=== PATIENT | male | born 1980 | race Caucasian/White ===

== ENCOUNTER 2022-01-31 21:57 | Emergency (ER) | payer OTHER, SELFPAY ==
[2022-01-31 21:57] VITALS: BP 162/112; PULSE 109; RESP 15; TEMP 36.6; O2SAT 95; BMI 35.9
--- NOTE | 2022-01-31 22:09 | EDS_ITS ---
HPI History of Present Illness Chief Complaint: Foreign Body Informant: patient Narrative Narrative: Presents for steak food impaction concerns. Patient ate steak at 430, he states he had a hiccup felt it lodged in his upper chest. He tried coke at home tried warm tea with no success. He states it stayed down briefly and would come right back up. Patient tried jumping up and down on steps. He had an incident a year ago with apple however that was able to get dislodged. Has never seen GI or had endoscopy. Denies past medical history. Denies allergies. Prior similar symptoms: Yes PFSH PFSH Home Medications buprenorphine-naloxone [Suboxone] 01/31/22 [History Last Taken Unknown] pantoprazole 40 mg tablet,delayed release 40 mg PO BID #60 tab 02/01/22 [Rx Last Taken Unknown] pantoprazole [Protonix] 40 mg PO BID 30 Days #60 tab 02/01/22 [Rx Last Taken Unknown] Allergy/AdvReac Type Severity Reaction Status Date / Time No Known Allergies Allergy Verified 01/31/22 22:01 Social History Smoking Status: Current every day smoker tobacco type: cigarettes ROS ROS ED Constitutional Constitutional ED: Denies chills, fever(s) or sweats Eyes Eyes: Denies change in vision ENT ENT ED: Denies dysphagia or sore throat Cardiovascular Cardiovascular: Denies chest pain, leg edema, palpitations or racing heartbeat Respiratory/Chest Respiratory/Chest: Denies cough, dyspnea or dyspnea on exertion Gastrointestinal Gastrointestinal: Denies abdominal pain, diarrhea, nausea or vomiting Genitourinary Genitourinary ED: Denies dysuria, hematuria or urinary frequency Musculoskeletal Musculoskeletal: Denies back pain, extremity pain or neck pain Integumentary Denies rash or wounds Neurologic Neurologic: Denies headache(s), paresthesias or weakness EXAM Physical Exam Const Vital Signs: 01/31/22 21:57 01/31/22 22:07 02/01/22 00:04 Temperature 97.9 F 98.2 F Temperature Source Temporal Pulse Rate 109 H 106 H Pulse Rate [1] Pulse Rate [2] Pulse Rate [3] Pulse Rate [4] Pulse Rate [5] Pulse Rate [6] Pulse Rate [7] Respiratory Rate 15 22 H Respiratory Rate [1] Respiratory Rate [2] Respiratory Rate [3] Respiratory Rate [4] Respiratory Rate [7] Respiratory Effort Normal Non-Labored Respiratory Pattern Normal Blood Pressure 162/112 H 163/99 H Blood Pressure [1] Blood Pressure [2] Blood Pressure [3] Blood Pressure [4] Blood Pressure [6] Blood Pressure [7] Blood Pressure Mean 128 Pulse Ox 95 96 Oxygen Delivery Method Room Air Room Air Oxygen Delivery Method [1] Oxygen Delivery Method [2] Oxygen Delivery Method [3] Oxygen Delivery Method [4] Oxygen Delivery Method [5] Oxygen Delivery Method [6] Oxygen Delivery Method [7] Oxygen Flow Rate (L/min) Oxygen Flow Rate (L/min) [1] Oxygen Flow Rate (L/min) [2] Oxygen Flow Rate (L/min) [3] Oxygen Flow Rate (L/min) [4] Oxygen Flow Rate (L/min) [5] Oxygen Flow Rate (L/min) [6] Oxygen Flow Rate (L/min) [7] 02/01/22 00:06 02/01/22 00:21 02/01/22 00:24 Temperature Temperature Source Pulse Rate 91 Pulse Rate [1] 94 Pulse Rate [2] 24 L Pulse Rate [3] 84 Pulse Rate [4] 77 Pulse Rate [5] 105 H Pulse Rate [6] 114 H Pulse Rate [7] 100 Respiratory Rate 27 H Respiratory Rate [1] 22 H Respiratory Rate [2] 19 H Respiratory Rate [3] 22 H Respiratory Rate [4] 25 H Respiratory Rate [7] 30 H Respiratory Effort Respiratory Pattern Blood Pressure 143/90 H Blood Pressure [1] 166/121 H Blood Pressure [2] 160/99 H Blood Pressure [3] 142/100 H Blood Pressure [4] 134/84 H Blood Pressure [6] 138/99 H Blood Pressure [7] 137/88 H Blood Pressure Mean Pulse Ox 92 Oxygen Delivery Method Non-Rebreather Non-Rebreather Oxygen Delivery Method [1] Nasal Cannula Oxygen Delivery Method [2] Nasal Cannula Oxygen Delivery Method [3] Nasal Cannula Oxygen Delivery Method [4] Nasal Cannula Oxygen Delivery Method [5] Nasal Cannula Oxygen Delivery Method [6] Nasal Cannula Oxygen Delivery Method [7] Nasal Cannula Oxygen Flow Rate (L/min) 15 15 Oxygen Flow Rate (L/min) [1] 2 Oxygen Flow Rate (L/min) [2] 3 Oxygen Flow Rate (L/min) [3] 4 Oxygen Flow Rate (L/min) [4] 4 Oxygen Flow Rate (L/min) [5] 4 Oxygen Flow Rate (L/min) [6] 4 Oxygen Flow Rate (L/min) [7] 95 02/01/22 00:29 02/01/22 00:34 02/01/22 00:39 Temperature Temperature Source Pulse Rate 109 H 99 88 Pulse Rate [1] Pulse Rate [2] Pulse Rate [3] Pulse Rate [4] Pulse Rate [5] Pulse Rate [6] Pulse Rate [7] Respiratory Rate 20 H 15 17 Respiratory Rate [1] Respiratory Rate [2] Respiratory Rate [3] Respiratory Rate [4] Respiratory Rate [7] Respiratory Effort Respiratory Pattern Blood Pressure 162/71 H 127/85 H 127/85 H Blood Pressure [1] Blood Pressure [2] Blood Pressure [3] Blood Pressure [4] Blood Pressure [6] Blood Pressure [7] Blood Pressure Mean Pulse Ox 92 95 97 Oxygen Delivery Method Non-Rebreather Non-Rebreather Non-Rebreather Oxygen Delivery Method [1] Oxygen Delivery Method [2] Oxygen Delivery Method [3] Oxygen Delivery Method [4] Oxygen Delivery Method [5] Oxygen Delivery Method [6] Oxygen Delivery Method [7] Oxygen Flow Rate (L/min) 15 15 15 Oxygen Flow Rate (L/min) [1] Oxygen Flow Rate (L/min) [2] Oxygen Flow Rate (L/min) [3] Oxygen Flow Rate (L/min) [4] Oxygen Flow Rate (L/min) [5] Oxygen Flow Rate (L/min) [6] Oxygen Flow Rate (L/min) [7] 02/01/22 01:27 02/01/22 01:36 02/01/22 01:41 Temperature 97.8 F Temperature Source Temporal Pulse Rate 83 91 78 Pulse Rate [1] Pulse Rate [2] Pulse Rate [3] Pulse Rate [4] Pulse Rate [5] Pulse Rate [6] Pulse Rate [7] Respiratory Rate 20 H 20 H 14 Respiratory Rate [1] Respiratory Rate [2] Respiratory Rate [3] Respiratory Rate [4] Respiratory Rate [7] Respiratory Effort Respiratory Pattern Blood Pressure 119/68 130/90 H 123/67 H Blood Pressure [1] Blood Pressure [2] Blood Pressure [3] Blood Pressure [4] Blood Pressure [6] Blood Pressure [7] Blood Pressure Mean 85 103 85 Pulse Ox 97 98 99 Oxygen Delivery Method Non-Rebreather Non-Rebreather Nasal Cannula Oxygen Delivery Method [1] Oxygen Delivery Method [2] Oxygen Delivery Method [3] Oxygen Delivery Method [4] Oxygen Delivery Method [5] Oxygen Delivery Method [6] Oxygen Delivery Method [7] Oxygen Flow Rate (L/min) 15 4 Oxygen Flow Rate (L/min) [1] Oxygen Flow Rate (L/min) [2] Oxygen Flow Rate (L/min) [3] Oxygen Flow Rate (L/min) [4] Oxygen Flow Rate (L/min) [5] Oxygen Flow Rate (L/min) [6] Oxygen Flow Rate (L/min) [7] 02/01/22 01:43 02/01/22 02:40 Temperature Temperature Source Pulse Rate 74 Pulse Rate [1] Pulse Rate [2] Pulse Rate [3] Pulse Rate [4] Pulse Rate [5] Pulse Rate [6] Pulse Rate [7] Respiratory Rate 74 H Respiratory Rate [1] Respiratory Rate [2] Respiratory Rate [3] Respiratory Rate [4] Respiratory Rate [7] Respiratory Effort Respiratory Pattern Blood Pressure 119/67 Blood Pressure [1] Blood Pressure [2] Blood Pressure [3] Blood Pressure [4] Blood Pressure [6] Blood Pressure [7] Blood Pressure Mean Pulse Ox 96 98 Oxygen Delivery Method Nasal Cannula Oxygen Delivery Method [1] Oxygen Delivery Method [2] Oxygen Delivery Method [3] Oxygen Delivery Method [4] Oxygen Delivery Method [5] Oxygen Delivery Method [6] Oxygen Delivery Method [7] Oxygen Flow Rate (L/min) 2 Oxygen Flow Rate (L/min) [1] Oxygen Flow Rate (L/min) [2] Oxygen Flow Rate (L/min) [3] Oxygen Flow Rate (L/min) [4] Oxygen Flow Rate (L/min) [5] Oxygen Flow Rate (L/min) [6] Oxygen Flow Rate (L/min) [7] Positive well nourished and well developed General Appearance ED: well developed and NAD HEENT Reports moist mucous membranes HEENT Narrative: Airway patent, no stridor normocephalic and atraumatic Eyes PERRL, EOMs intact bilaterally and conjunctivae normal General Eye ED: Yes normal appearance of both eyes Neck no lymphadenopathy and supple General: Negative for tenderness Chest Wall Chest: Negative for tenderness Resp normal respiratory effort and normal air movement Effort and Inspection: symmetric chest movement; Negative for respiratory distress Cardio regular rate, regular rhythm and no murmurs Peripheral Pulses: pulses 2+ throughout GI normal to inspection, nondistended, normoactive bowel sounds and non-tender Palpation: Negative for guarding or rebound tenderness present Back/Spine no CVA tenderness and no thoracic nor lumbar tenderness Extremity normal to inspection General Extremety ED: Negative for edema or tenderness General Extremity: Negative for edema Neuro oriented x3 and no sensory deficits noted Sensorium / Orientation: awake and alert Skin no rashes or lesions noted and no wounds MDM MDM MDM Narrative Medical decision making narrative: Patient presenting with concerning steak impaction. Attempted additional carbonated drinks with no success IVs placed glucagon IV also no success. Discussed with GI Dr. Vivas who came to emergency department assist. Consent was obtained conscious sedation by myself procedure by Dr. Vivas. Confirm steak impaction with eosinophilic esophagitis concerns. He recommended Protonix 40 mL twice daily for the next 8 weeks. Liquid diet for next 24 hours and soft foods. Patient will chew his food thoroughly. We will follow-up as an outpatient. Discussed no driving or working for the next day. He is discharged with ride. Prescriptions with meds to bed for 30 days along with additional refill for the 8-week plan of treatment. Procedure note: Written consent. Risks and benefits discussed. IV with fluids cardiac cath lab technologist oxygenation and pulse ox. ASA classification via 2 with his BMI. He does report snoring however no diagnosed sleep apnea. Mallampati 3. Timeout performed. Patient sedated for procedure requiring a total of 270 mg of propofol and 5 mg of Versed, procedure performed by Dr. Vivas see his note. Current time patient intermittently catheterization in the 80s responded with increasing oxygenation and jaw thrust. After procedure switch over to a vent mass with bite-block remaining to improve airway. There is no complications with this. Patient tolerated procedure well. Sinus rhythm on the monitor throughout. Total sedation time 30 minutes. Discharge Plan Triage Chief Complaint: Foreign Body ED Provider: Balwinder Prado Dx/Rx/DC Orders Clinical Impression: Esophageal foreign body, Eosinophilic esophagitis, History of conscious sedation Instructions: Eosinophilic Esophagitis (EoE), ED Esophageal Foreign Body, Resolved Prescriptions: New pantoprazole [Protonix] 40 mg tablet,delayed release (DR/EC) 40 mg PO BID 30 Days Qty: 60 RF: 1 No Action buprenorphine-naloxone [Suboxone] 2-0.5 mg film RF: 0 pantoprazole 40 mg tablet,delayed release (DR/EC) 40 mg PO BID Qty: 60 RF: 1 Primary Care Provider: Keenan Dumont Referrals: Phil Vivas DO [STAFF PHYSICIAN] - (3-4 weeks) Keenan Dumont MD [Primary Care Provider] - Activity Restrictions/Additional Instructions: Your steak impaction was removed findings of eosinophilic esophagitis. Take Protonix twice a day for the next 8 weeks per recommendations of GI. Follow-up with them as an outpatient. Clear liquid diet for the next 24 hours then soft foods. Make sure you chew your food before you swallow. Follow-up with GI in the next 3 to 4 weeks. Disposition Disposition: Home, Self Care Discharge Date/Time: 02/01/22 02:46
--- NOTE | 2022-01-31 22:10 | ED.RN ---
jumping on heels at this time and given 2 small cokes to drink
[2022-01-31] MEDS: Glucagon 1 MG/ML Syringe IV (22:27)
--- NOTE | 2022-01-31 23:00 | CON.PCM_ITS ---
Assessment & Plan Assessment/Plan (1) Esophageal foreign body: PLAN: Recommendation is upper endoscopy with removal of foreign body. He was explained alternatives, risk, benefits including not withstanding bleeding, infection, sepsis, perforation, need for emergent surgery . Have an ASA of 1. HPI Consult Data Date of Consult: 02/01/22 HPI Narrative HPI Narrative: MAURY MAYER, is a 41 M who presents from home with a foreign body. He has had intermittent episodes of esophageal dysphagia secondary to foreign bodies. This happened to him approximately a year ago but he was able to cough out the food. He does not take any NSAIDs. He has no history of liver disease. He does not take any antacids. He denies any chest pain or shortness of breath. The only medicine he takes on a daily basis and due to of previous history of usage [facility] Home Medications buprenorphine-naloxone [Suboxone] 01/31/22 [History Last Taken Unknown] Allergy/AdvReac Type Severity Reaction Status Date / Time No Known Allergies Allergy Verified 01/31/22 22:01 Social History Smoking Status: Current every day smoker tobacco type: cigarettes ROS Review of Systems ROS Unobtainable: other Constitutional Constitutional: Denies fatigue, fever(s), poor appetite, weight gain or weight loss ENT HEENT: Denies mouth lesions Cardiovascular Cardiovascular: Denies abdominal bloating, abdominal edema or abdominal pain Respiratory/Chest Respiratory/Chest: Denies change in mental status, change in phlegm color, chest congestion or chest tightness Gastrointestinal Gastrointestinal: Reports dysphagia Genitourinary Genitourinary: Denies abdominal discomfort, burning urination or itching Musculoskeletal Musculoskeletal: Reports as per HPI; Denies muscle weakness or myalgias Integumentary Integumentary: Denies jaundice Neurologic Neurologic: Denies lack of coordination or weakness Psychiatric Psychiatric: Denies confusion, depression, memory loss, mood swings, paranoia or suicidal ideation Endocrine Endocrinology: Denies systems reviewed and no addt'l complaints, except as documented Hematologic/Lymphatic Hematologic/Lymphatic: Denies anemia, easy bleeding, easy bruising or lymphadenopathy Allergic/Immunologic Allergic/Immunologic: Denies systems reviewed and no addt'l complaints, except as documented Physical Exam Const alert General Appearance: cooperative Orientation / Consciousness: oriented to person HEENT hearing grossly normal bilaterally Head and Scalp: normal to inspection Face and Sinus: face symmetric Nose: external nose normal Mouth: oral and palatal mucosa normal Eyes conjunctivae normal General Eye: normal appearance of both eyes Neck full ROM General: normal visual inspection Lymph Lymphatic: no lymphadenopathy noted Chest inspection of chest normal and palpation of chest normal Chest: symmetrical chest wall rise Resp normal respiratory effort Effort and Inspection: able to speak in complete sentences Cardio regular rate GI non-distended Percussion: normal to percussion Rectal Exam: deferred Neuro Speech: speech normal Gait (Neuro): normal gait Charges/Coding Visit Charges Office Visits / Consults: [id number] ED Visit; Low/Mod Severity
[2022-02-01] VITALS (12 sets, daily range): BP systolic 119–166; BP diastolic 67–121; PULSE 24–114; RESP 14–74; TEMP 36.6–36.8; O2SAT 92–99
--- NOTE | 2022-02-01 00:35 | OP.CCLET_ITS ---
07/02/2022 Keenan Dumont Re : Upper GI endoscopy procedure for Amauri Miller Dear Julia This procedure was performed on Monday, January 31, 2022. My impressions and recommendations are as follows: Impressions : - Food in the middle third of the esophagus. Removal was successful. - Esophageal mucosal changes consistent with eosinophilic esophagitis. Dilated. - A large amount of food (residue) in the stomach. - Normal duodenal bulb. Recommendations : - Discharge patient to home. - Clear liquid diet today. - Use Protonix (pantoprazole) 40 mg PO BID for 8 weeks. - Continue present medications. My findings are described in the full procedure note, which is enclosed. If I can be of further assistance, please feel free to contact me at . Sincerely, Phil Vivas, 02/01/2022 12:35:03 AM This report has been signed electronically.
--- NOTE | 2022-02-01 00:35 | OP.EGD_ITS ---
Patient Name: Amauri Miller Procedure Date: 01/31/2022 11:49 PM Date of : 1980 Age: 41 Procedure: Upper GI endoscopy Indications: Dysphagia Providers: Phil Vivas DO Medicines: Monitored Anesthesia Care Patient Profile: This is a 41 year old male. Refer to note in patient chart for documentation of history and physical. Patient has symptoms of acute dysphagia. Complications: No immediate complications. Procedure: Pre-Anesthesia Assessment: - Prior to the procedure, a History and Physical was performed, and patient medications and allergies were reviewed. The risks and benefits of the procedure and the sedation options and risks were discussed with the patient. All questions were answered and informed consent was obtained. Patient identification and proposed procedure were verified by the physician in the pre-procedure area. Mental Status Examination: alert and oriented. Airway Examination: normal oropharyngeal airway and neck mobility. Respiratory Examination: clear to auscultation. CV Examination: normal. Prophylactic Antibiotics: The patient does not require prophylactic antibiotics. Prior Anticoagulants: The patient has taken no previous anticoagulant or antiplatelet agents. ASA Grade Assessment: II - A patient with mild systemic disease. After reviewing the risks and benefits, the patient was deemed in satisfactory condition to undergo the procedure. The anesthesia plan was to use moderate sedation / analgesia (conscious sedation). Immediately prior to administration of medications, the patient was re-assessed for adequacy to receive sedatives. The heart rate, respiratory rate, oxygen saturations, blood pressure, adequacy of pulmonary ventilation, and response to care were monitored throughout the procedure. The physical status of the patient was re-assessed after the procedure. After obtaining informed consent, the endoscope was passed under direct vision. Throughout the procedure, the patient's blood pressure, pulse, and oxygen saturations were monitored continuously. The gastroscope was introduced through the mouth, and advanced to the second part of duodenum. The upper GI endoscopy was accomplished without difficulty. The patient tolerated the procedure well. Moderate Sedation: Moderate (conscious) sedation was administered by the endoscopy nurse and supervised by the endoscopist. The following parameters were monitored: oxygen saturation, heart rate, blood pressure, and response to care. Total physician intraservice time was 15 minutes. Scope In: 12:11:42 AM Scope Out: 12:21:51 AM Total Procedure Duration Time 0 hours 10 minutes 9 seconds Findings: Food was found in the middle third of the esophagus. Removal of food was accomplished. Mucosal changes including ringed esophagus, feline appearance, longitudinal furrows, small-caliber esophagus and white plaques were found in the entire esophagus. Esophageal findings were graded using the Eosinophilic Esophagitis Endoscopic Reference Score (EoE-EREFS) as: Edema Grade 1 Present (decreased clarity or absence of vascular markings), Rings Grade 3 Severe (distinct rings that do not permit passage of diagnostic 8-10 mm endoscope), Exudates Grade 1 Mild (scattered white lesions involving less than 10 percent of the esophageal surface area), Furrows Grade 1 Present (vertical lines with or without visible depth) and Stricture present. A guidewire was placed and the scope was withdrawn. Dilation was performed with a Savary dilator with no resistance at 33 Fr. The dilation site was examined and showed mild improvement in luminal narrowing. Estimated blood loss was minimal. A large amount of food (residue) was found in the entire examined stomach. The duodenal bulb was normal. Impression: - Food in the middle third of the esophagus. Removal was successful. - Esophageal mucosal changes consistent with eosinophilic esophagitis. Dilated. - A large amount of food (residue) in the stomach. - Normal duodenal bulb. Recommendation: - Discharge patient to home. - Clear liquid diet today. - Use Protonix (pantoprazole) 40 mg PO BID for 8 weeks. - Continue present medications. Procedure Code(s): --- Professional --- 83029, Esophagogastroduodenoscopy, flexible, transoral; with removal of foreign body(s) 71135, Esophagogastroduodenoscopy, flexible, transoral; with insertion of guide wire followed by passage of dilator(s) through esophagus over guide wire G0500, Moderate sedation services provided by the same physician or other qualified health hearing healthcare practitioner performing a gastrointestinal endoscopic service that sedation supports, requiring the presence of an independent trained observer to assist in the monitoring of the patient's level of consciousness and physiological status; initial 15 minutes of intra-service time; patient age 5 years or older (additional time may be reported with 32889, as appropriate) CPT copyright 2017 [employer]. All rights reserved. The codes documented in this report are preliminary and upon solar fabrication technician review may be revised to meet current compliance requirements. Phil Vivas DO 02/01/2022 12:35:03 AM This report has been signed electronically. Number of Addenda: 1 Note Initiated On: 01/31/2022 11:49 PM Addendum Number: 1 Addendum Date: 07/02/2022 6:34:11 AM MAC was used as sedation for this procedure. Phil Vivas DO 07/02/2022 6:34:19 AM This report has been signed electronically.
[2022-02-01] MEDS: Midazolam 5 MG/ML Syringe IV (01:39)
== END 2022-02-01 02:46 | disposition home or self-care (01) ==
PROVIDERS: Internal Medicine Gastroenterology; Emergency Provider Emergency Medicine; PCP Family Medicine; Visit Provider Emergency Medicine
PROC: 0DJ08ZZ Inspection of Upper Intestinal Tract, Via Natural or Artificial Opening Endoscopic (ICD-10-PCS; CPT 43235; principal; 2022-01-31 23:30)
DX: T18.128A Food in esophagus causing other injury, initial encounter (principal); K20.0 Eosinophilic esophagitis; F17.210 Nicotine dependence, cigarettes, uncomplicated; X58.XXXA Exposure to other specified factors, initial encounter
CPT/HCPCS: 43247; 43248; 96365; 96375; 99152; 99284; J7030; A4216; J1610